=== PATIENT | male | born 1995 | race African-American/Black ===

== ENCOUNTER 2018-02-12 15:35 | Emergency (ER) | payer BC, OTHER ==
[2018-02-12 16:01] VITALS: BP 136/84; PULSE 77; TEMP 98.2; BMI 38.7
--- NOTE | 2018-02-12 16:23 | PDOC ---
Suture Removal/Wound Check HPI - History of Present Illness Chief Complaint: Suture/Staple Removal (other) Stated Complaint: SUTURE REMOVAL Time Seen by Provider: 02/12/18 16:08 History Source: Yes: Patient Exam Limitations: Yes: No Limitations Treated at: [facility] ED - Previous ED Treatment Type of procedure performed on last visit: Yes: Laceration Repair Tetanus Immunization: Yes: Up to Date Antibiotics Prescribed: No Past History - Travel Traveled outside of the country in the last 30 days: No Close contact w/someone who was outside of country & ill: No - Past Medical History Allergies/Adverse Reactions: Allergies Allergy/AdvReac Type Severity Reaction Status Date / Time bacitracin Allergy Mild Rash Verified 02/12/18 16:00 Home Medications: Ambulatory Orders Glimepiride 2 mg PO DAILY 11/30/14 Sitagliptin Phosphate [Januvia] 100 mg PO DAILY 11/30/14 metFORMIN HCL [Glucophage] 1,000 mg PO BID 11/30/14 Magnesium Oxide [Mag-Ox -] 400 mg PO BID #10 tablet 12/02/14 Cyclobenzaprine HCl [Flexeril -] 10 mg PO TID PRN #21 tablet 10/28/16 Naproxen [Naprosyn -] 500 mg PO BID PRN #14 tablet 10/28/16 COPD: No Diabetes: Yes - Surgical History Orthopedic Surgery: Yes (slipped left femur age 9) - Suicide/Smoking/Psychosocial Hx Smoking History: Never smoked Have you smoked in the past 12 months: Yes Number of Cigarettes Smoked Daily: 20 Information on smoking cessation initiated: No 'Breaking Loose' booklet given: 11/30/14 Hx Alcohol Use: No Drug/Substance Use Hx: No Substance Use Type: None Hx Substance Use Treatment: No Suture Removal/Wound Check PE - Physical Exam Laceration/Wound Check Symptoms: reports: None Current Severity Level: None Maximum Severity Level: None Pain Localization: None Location of Laceration/Wound: right: Shoulder (5 igor removed with no incident- well approximated ) *Review of Systems - Review of Systems Able to Perform ROS?: Yes Constitutional: Yes: See HPI. No: Symptoms Reported HEENTM: No: Symptoms Reported Integumentary: Yes: Symptoms Reported, See HPI, Dryness All Other Systems: Reviewed and Negative *DC/Admit/Observation/Transfer Diagnosis at time of Disposition: Removal of staple - Discharge Dispostion Disposition: HOME Condition at time of disposition: Stable Admit: No - Referrals - Patient Instructions Printed Discharge Instructions: DI for Suture Removal - Post Discharge Activity
== END 2018-02-12 16:52 | disposition home or self-care (01) ==
LOC: JERFT 15:35
DX: Z48.02 Encounter for removal of sutures (principal)
CPT/HCPCS: 99281-25

== ENCOUNTER 2021-07-07 21:57 | Inpatient (IN) | payer BC, OTHER ==
[2021-07-07] MEDS ORDERED: SODIUM CHLORIDE 1,000 ML IV STA (23:46)
[2021-07-07] MEDS ORDERED: ONDANSETRON 4 MG/2 ML VIAL IVPUSH ONE (23:48)
[2021-07-08] MEDS ORDERED: ONDANSETRON 4 MG/2 ML VIAL ONE
[2021-07-08 00:20] LABS: EPI CELLS 7 /uL (0-25.1); HYALINE CASTS 0 /uL (0-3.1); URINE APPEARANCE CLEAR; URINE BACTERIA 4 /uL (0-1359); URINE BILIRUBIN 2+ (NEGATIVE); URINE COLOR DK YELLOW; URINE GLUCOSE (UA) 3+ (NEGATIVE); URINE KETONE 4+ (NEGATIVE); URINE LEUK ESTERASE NEGATIVE (NEGATIVE); URINE NITRITE NEGATIVE (NEGATIVE); URINE PROTEIN 2+ (NEGATIVE); URINE RBC 16 /uL (0-23.9); URINE WBC 10 /uL (0-25.8)
[2021-07-08 01:00] LABS: HEMATOCRIT 42.9 % (35.4-49); HEMOGLOBIN 13.6 GM/dL (11.7-16.9); MCH 23.6 pg (25.7-33.7); MCHC 31.8 g/dl (32.0-35.9); MEAN CELL VOLUME 74.2 fl (80-96); MEAN PLT VOLUME 9.8 fl (7.5-11.1); PLATELET COUNT 197 10^3/uL (134-434); RBC 5.78 M/mm3 (4.00-5.60); RDW 17.3 % (11.9-15.9)
[2021-07-08 01:05] LABS: WHITE BLOOD COUNT 30.3 K/mm3 (4.0-10.0)
[2021-07-08 01:06] LABS: VENOUS BASE EXCESS -0.8 mmol/L (-2-2); VENOUS O2 SATURATION 33.5 % (70-80); VENOUS PCO2 44.3 mmHg (38-52); VENOUS PH 7.366 (7.310-7.410)
[2021-07-08 01:09] LABS: ALBUMIN 3.1 g/dl (3.4-5.0); BLOOD UREA NITROGEN 8.3 mg/dL (7-18); CALCIUM 8.3 mg/dL (8.5-10.1)
[2021-07-08 01:13] LABS: BILIRUBIN,TOTAL 4.6 mg/dL (0.2-1)
[2021-07-08 01:14] LABS: TOT PROT 7.4 g/dl (6.4-8.2)
[2021-07-08 01:29] LABS: LACTIC ACID 2.3 mmol/L (0.4-2.0)
[2021-07-08] MEDS ORDERED: SODIUM CHLORIDE 1,000 ML IV STA (01:52)
[2021-07-08 02:01] LABS: ANISOCYTOSIS 0; MACROCYTOSIS 0; PLATELET ESTIMATE NORMAL
[2021-07-08] MEDS ORDERED: PIPERACILLIN/TAZOB 4.5 GM 4.5 GM in DEXTROSE 5%-WATER 100 ML IVPB ONE (02:02)
[2021-07-08] MEDS ORDERED: PIPERACILLIN/TAZOB 4.5 GM 4.5 GM/100 ML BAG IVPB ONE (02:04)
[2021-07-08] MEDS ORDERED: HYDROmorphone HCL CARPU-JECT 2 MG/1 ML DISP.SYRIN IVPUSH ONE ×2 (02:09→02:22)
[2021-07-08] MEDS ORDERED: METOCLOPRAMIDE HCL INJECTION 10 MG/2 ML VIAL IVPUSH ONE (02:09)
[2021-07-08] MEDS ORDERED: METOCLOPRAMIDE HCL INJECTION 10 MG/2 ML VIAL ONE (02:10)
[2021-07-08] MEDS ORDERED: HYDROmorphone HCl 2 MG/ML VIAL ONE (02:13)
[2021-07-08] MEDS ORDERED: INSULIN REGULAR HUMAN 100 UNITS/ML *VIAL IVPUSH ONE (04:41)
[2021-07-08] MEDS ORDERED: SODIUM CHLORIDE 1,000 ML IV SCH (04:45)
[2021-07-08] MEDS ORDERED: INSULIN REGULAR HUMAN 100 UNITS/ML *VIAL ONE (05:05)
[2021-07-08] MEDS ORDERED: morphine CARPU-JECT 4 MG/1 ML DISP.SYRIN IVPUSH PRN ×3 (05:09→11:38)
[2021-07-08] MEDS ORDERED: MORPHINE SULFATE 2 MG/ML VIAL ONE (05:10)
[2021-07-08] MEDS ORDERED: MORPHINE SULFATE 2 MG/ML VIAL IVPUSH PRN ×2 (05:44→11:06)
[2021-07-08 06:06] LABS: HEMATOCRIT 43.3 % (35.4-49); HEMOGLOBIN 13.7 GM/dL (11.7-16.9); MCH 24.1 pg (25.7-33.7); MCHC 31.7 g/dl (32.0-35.9); MEAN PLT VOLUME 9.8 fl (7.5-11.1); PLATELET COUNT 177 10^3/uL (134-434); RDW 17.5 % (11.9-15.9)
[2021-07-08 06:10] LABS: WHITE BLOOD COUNT 33.1 K/mm3 (4.0-10.0)
[2021-07-08 06:25] LABS: CALCIUM 8.5 mg/dL (8.5-10.1)
[2021-07-08 06:26] LABS: ALBUMIN 3.2 g/dl (3.4-5.0); MAGNESIUM 2.1 mg/dL (1.8-2.4)
[2021-07-08 06:27] LABS: BLOOD UREA NITROGEN 7.5 mg/dL (7-18)
[2021-07-08 06:30] LABS: PHOSPHOROUS 3.6 mg/dL (2.5-4.9)
[2021-07-08 06:32] LABS: TOT PROT 7.9 g/dl (6.4-8.2)
[2021-07-08] MEDS: INSULIN SLIDING SCALE (NOVOLOG) 1 VIAL SQ SCH ×3 (06:37→16:15)
[2021-07-08 06:40] VITALS: BMI 52.9
[2021-07-08 08:48] LABS: ANISOCYTOSIS 2+; MACROCYTOSIS 1+; PLATELET ESTIMATE NORMAL
[2021-07-08] MEDS ORDERED: ENOXAPARIN NA (PORCINE) 40 MG/0.4 ML DISP.SYRIN SQ SCH (10:00)
[2021-07-08] MEDS ORDERED: PIPERACILLIN/TAZOB 4.5 GM 4.5 GM in DEXTROSE 5%-WATER 100 ML IVPB SCH (10:00)
[2021-07-08] MEDS ORDERED: PIPERACILLIN/TAZOBACTAM 4.5 GM VIAL IVPB ONE ×2 (10:40→14:32)
[2021-07-08] MEDS ORDERED: DEXTROSE 5%-WATER 100 ML IVPB ONE ×2 (10:40→14:32)
[2021-07-08] MEDS: PIPERACILLIN/TAZOB 4.5 GM 4.5 GM in DEXTROSE 5%-WATER 100 ML IVPB SCH ×2 (10:43→16:00)
[2021-07-08] MEDS: morphine SULFATE 4 MG/ML VIAL IVPUSH PRN ×3 (12:09→21:43)
[2021-07-08 19:55] VITALS: BP 154/88; PULSE 111; TEMP 99.6
[2021-07-08] MEDS ORDERED: LISINOPRIL 10 MG TABLET PO SCH (22:00)
[2021-07-09] MEDS ORDERED: PIPERACILLIN/TAZOB 4.5 GM 4.5 GM in DEXTROSE 5%-WATER 100 ML IVPB SCH (10:00)
== END 2021-07-08 21:30 | disposition short-term general hospital (02) ==
LOC: JER 21:57 → JERBED 07-08 03:22 → J2W 07-08 06:29
PROVIDERS: ADMIT Internal Medicine; ATTEND Internal Medicine
DX: K80.20 Calculus of gallbladder without cholecystitis without obstruction (principal); E11.65 Type 2 diabetes mellitus with hyperglycemia; K76.0 Fatty (change of) liver, not elsewhere classified; D72.829 Elevated white blood cell count, unspecified; F17.210 Nicotine dependence, cigarettes, uncomplicated; I10 Essential (primary) hypertension; R11.2 Nausea with vomiting, unspecified; R74.01 Elevation of levels of liver transaminase levels; R80.9 Proteinuria, unspecified; Z68.43 Body mass index [BMI] 50.0-59.9, adult; E87.2 Acidosis; E66.01 Morbid (severe) obesity due to excess calories
CPT/HCPCS: 36415; 76705-TC; 76882-TC-RT-FY; 80053; 80061; 81003; 82010; 82803; 82962; 83605; 83690; 83735; 84100; 85025; 86706; 86708; 87340; 87517; 87522; 93005; 93010; 99285-25; C9803; U0003; U0005

== ENCOUNTER 2025-05-09 15:33 | Emergency (ER) | payer OTHER ==
[2025-05-09 15:38] VITALS: BP 152/88; PULSE 89; RESP 18; TEMP 97.9; BMI 44.3
[2025-05-09 18:09] LABS: ABSOLUTE IMMATURE GRANULOCYTES 0.01 x10^3/uL (0.0-0.031); BASOPHILS # 0.02 x10^3/uL (0.01-0.08); EOSINOPHIL % 1.9 % (0.8-7.0); EOSINOPHILS # 0.14 x10^3/uL (0.04-0.54); MCHC 31.1 g/dl (32.3-36.5); MEAN CELL VOLUME 80.2 fl (79.0-92.2); MEAN PLT VOLUME 11.1 fl (9.4-12.4); MONOCYTE # 0.51 x10^3/uL (0.30-0.82); MONOCYTE % 6.8 % (5.3-12.2); RDW 14.7 % (12.0-15.6)
[2025-05-09 18:38] LABS: CO2 26.0 mmol/L (21-32); GLUCOSE,RANDOM 127.0 mg/dL (74-106)
[2025-05-09 18:41] LABS: CREATININE 0.8 mg/dL (0.55-1.3)
[2025-05-09 19:34] LABS: HIV INTERPRETATION NEGATIVE (NEGATIVE)
[2025-05-09 19:35] LABS: HCV DIAGNOSTIC IN-HOUSE W/RFLX NON-REACTIVE (NONREACTIVE)
== END 2025-05-09 18:45 | disposition home or self-care (01) ==
LOC: JERFT 15:33 → JER 15:33 → JERFT 18:45
DX: G62.9 Polyneuropathy, unspecified (principal); R20.0 Anesthesia of skin
CPT/HCPCS: 36415; 80048; 82550; 82553; 85025; 86803; 87389; 99283-25